=== PATIENT | female | born 1975 | race Caucasian/White ===

== ENCOUNTER → 2017-05-08 | Outpatient (CLI) | payer BC ==
[~2017-05-08] MED LIST: LANTUS SOLOS100 U/ML SC; LEVEMIR FLEXPEN SQ; MOTRIN 600600 MG/TAB PO; MOTRIN 800800 MG/TAB PO; PERCOCET 325 MG1 TA2 PO; PRENATAL1 TA1 PO
== END ==
LOC: MC.RAD 14:16
DX: Z12.31 Encounter for screening mammogram for malignant neoplasm of breast (principal); N63.21 Unspecified lump in the left breast, upper outer quadrant

== ENCOUNTER → 2017-05-11 | Outpatient (CLI) | payer BC | LOC: MC.RAD 09:00 | DX: N63.20 Unspecified lump in the left breast, unspecified quadrant (principal) ==

== ENCOUNTER → 2018-10-18 | Outpatient (CLI) | payer BC | LOC: MC.RAD 06:58 | DX: Z12.31 Encounter for screening mammogram for malignant neoplasm of breast (principal) ==

== ENCOUNTER 2018-11-13 18:14 | Emergency (ER) | payer BC ==
[~2018-11-13] VITALS: Ht 172.7 cm; Wt 93.2 kg
[2018-11-13] MEDS ORDERED: ESTRACE2 MG PO ×2 (18:29→18:30)
[2018-11-13] MEDS ORDERED: LEXAPRO20 MG PO (18:29)
[2018-11-13] MEDS ORDERED: ALDACTONE 100M100 MG PO (18:30)
[2018-11-13] MEDS ORDERED: GLUCOPHAGE XR500 M1 PO (18:30)
[2018-11-13 18:45] LABS: BASO # 0.1 (0.0-0.2); BASO % 0.3 % (0.0-2.0); GRAN % 86.6 % (42.2-75.2); HEMATOCRIT 42.7 % (37.0-47.0); HEMOGLOBIN 14.6 g/dl (12.5-16.0); LYMPH # 1.2 (1.2-3.4); LYMPH % 6.2 % (20.0-51.0); MEAN CELL VOLUME 88 fl (80.0-100.0); MEAN CORPUSCULAR HEMOGLOBIN 30 pg (27.0-31.0); MEAN CORPUSCULAR HGB CONC 34 g/dl (33.0-37.0); MEAN PLATELET VOLUME 8.8 fl (7.4-10.4); MONO # 1.1 (0.1-0.6); PLATELET COUNT 184 K/mm3 (130-400); RED BLOOD COUNT 4.86 M/mm3 (4.10-5.30); REDCELL DISTRIBUTION WIDTH-CV 12.1 % (11.5-14.5)
[2018-11-13 18:52] LABS: STREP SCREEN NEGATIVE
[2018-11-13 18:54] LABS: ALBUMIN 3.8 gm/dL (3.5-5.0); BILIRUBIN,TOTAL 0.5 mg/dL (0.0-1.0); CALCIUM 9.1 mg/dL (8.4-10.2); CREATININE, serum 0.69 (0.52-1.25); POTASSIUM 3.6 mmol/L (3.4-5.0); TOTAL PROTEIN 7.2 gm/dL (6.4-8.2)
[2018-11-13 19:39] VITALS: TEMP 98.4
[2018-11-13 20:17] VITALS: BP 114/65; PULSE 80
[2018-11-13] MEDS ORDERED: LEVAQUIN 5500 MG/TA1 PO (20:21)
[2018-11-13] MEDS ORDERED: ZOFRAN ODT4 MG PO (20:21)
[2018-11-14] VITALS (34 sets, daily range): O2SAT 89–100
[2018-11-15] VITALS (314 sets, daily range): O2SAT 79–100
== END 2018-11-13 20:35 | disposition home or self-care (01) ==
LOC: COL.ER 18:14
PROVIDERS: Nurse Practitioner
DX: J18.1 Lobar pneumonia, unspecified organism (principal); Z88.5 Allergy status to narcotic agent; Z88.0 Allergy status to penicillin; Z90.49 Acquired absence of other specified parts of digestive tract; Z90.710 Acquired absence of both cervix and uterus; Z79.84 Long term (current) use of oral hypoglycemic drugs
CPT/HCPCS: J1885; J2405; J7030

== ENCOUNTER 2018-11-14 18:26 | Inpatient (IN) | payer BC ==
[~2018-11-14] VITALS: Ht 172.7 cm; Wt 95.5 kg
[2018-11-14] VITALS (18 sets, daily range): BP systolic 121; BP diastolic 61; PULSE 96; TEMP 98.9; O2SAT 96–97
[~2018-11-14 18:26] MED LIST changes: +ALDACTONE 100M100 MG PO; +ESTRACE2 MG PO; +GLUCOPHAGE XR500 M1 PO; +LEVAQUIN 5500 MG/TA1 PO; +LEXAPRO20 MG PO; +ZOFRAN ODT4 MG PO
[2018-11-14 19:35] LABS: BASO % 0.3 % (0.0-2.0); GRAN # 9.7 (1.4-6.5); HEMATOCRIT 40.8 % (37.0-47.0); HEMOGLOBIN 14.1 g/dl (12.5-16.0); LYMPH # 0.7 (1.2-3.4); LYMPH % 6.5 % (20.0-51.0); MEAN CELL VOLUME 88 fl (80.0-100.0); MEAN CORPUSCULAR HEMOGLOBIN 31 pg (27.0-31.0); MEAN CORPUSCULAR HGB CONC 35 g/dl (33.0-37.0); MEAN PLATELET VOLUME 8.8 fl (7.4-10.4); MONO # 0.7 (0.1-0.6); PLATELET COUNT 173 K/mm3 (130-400); RED BLOOD COUNT 4.62 M/mm3 (4.10-5.30); REDCELL DISTRIBUTION WIDTH-CV 12.5 % (11.5-14.5)
[2018-11-14 19:55] LABS: ALBUMIN 3.7 gm/dL (3.5-5.0); BILIRUBIN,TOTAL 0.5 mg/dL (0.0-1.0); CALCIUM 8.8 mg/dL (8.4-10.2); CREATININE, serum 0.76 (0.52-1.25); POTASSIUM 3.6 mmol/L (3.4-5.0); TOTAL PROTEIN 7.2 gm/dL (6.4-8.2)
[2018-11-14 20:33] LABS: C-REACTIVE PROTEIN 42.8 mg/dL (0.0-0.9)
--- NOTE | 2018-11-14 22:40 | NUR ---
Patient arrived to ICU accompanied by Phoebe ED RN. Patient able to scoot over from bed to bed, no issues to report. Patient denied needing any person notified of arrival, belongings taken home by . Will assume care of patient at this time.
[2018-11-15] VITALS (7 sets, daily range): BP systolic 113–133; BP diastolic 32–82; PULSE 81–120; TEMP 98.4–103.1
--- NOTE | 2018-11-15 02:44 | NUR ---
PT BREATH SOUNDS ARE COURSE; HOWEVER THORUGHT TREATMENT PT COUGHS AND BREATH SOUNDS IMPROVE.
[2018-11-15 05:24] LABS: MEAN CELL VOLUME 91 fl (80.0-100.0); MEAN CORPUSCULAR HGB CONC 34 g/dl (33.0-37.0); MEAN PLATELET VOLUME 8.7 fl (7.4-10.4); PLATELET COUNT 148 K/mm3 (130-400); RED BLOOD COUNT 3.94 M/mm3 (4.10-5.30); REDCELL DISTRIBUTION WIDTH-CV 12.6 % (11.5-14.5)
[2018-11-15 05:32] LABS: ALBUMIN 2.7 gm/dL (3.5-5.0); BILIRUBIN,TOTAL 0.3 mg/dL (0.0-1.0); CALCIUM 7.1 mg/dL (8.4-10.2); CREATININE, serum 0.68 (0.52-1.25); POTASSIUM 3.8 mmol/L (3.4-5.0); TOTAL PROTEIN 5.6 gm/dL (6.4-8.2)
[2018-11-15 05:39] LABS: HEMATOCRIT 35.7 % (37.0-47.0); MEAN CORPUSCULAR HEMOGLOBIN 30 pg (27.0-31.0)
[2018-11-15 07:42] LABS: BAND 26 % (0-10); LYMPHOCYTE 22 % (20.0-51.0); METAMYELOCYTE 1 % (0-0); NEUTROPHILS 47 % (42.0-75.2); PLATELET ESTIMATE NORMAL (NORMAL)
--- NOTE | 2018-11-15 08:00 | NUR ---
Shift assessment complete at this time. Plan of care reviewed at bedside with patient. Additional time taken to address any other needs or concerns. Denies pain or any other discomfot. Vitals stable at this time. Bed in low position, call light within reach. Will continue to monitor.
--- NOTE | 2018-11-15 10:11 | NUR ---
Initial visit; Patient thanked Delinquent Tax Collector Assistant for stopping by and offering God's blessings.
--- NOTE | 2018-11-15 10:30 | NUR ---
SW attended clinical rounds to discuss discharge planning. Patient lives independently at home with her and works at the [employer]. Patient's PCP is Dr Shameka Landrum and she obtains prescriptions from [facility]. There is no reported DME or home health services. Patient will move up to the floor today. SW does not anticipate any discharge needs but will follow as needed.
--- NOTE | 2018-11-15 12:00 | NUR ---
Pt resting comfortably in bed. Denies pain or any other discomfort. Vitals stable at this time. Pt reports nausea is somewhat better now. Bed in low position, call light within reach. Will continue to monitor.
--- NOTE | 2018-11-15 13:45 | NUR ---
Pt transferred to Medical bed 315 by wheelchair. Pt tolerated transfer well with only complaints of minor nausea. Zofran administered prior to departure from ICU. Report called to ISABELLA Renee prior to patient transfer.
--- NOTE | 2018-11-15 14:49 | NUR ---
Pt alert and oriented. Pt nauseous upon arrival to floor and had small amount of emesis. Pt on oxygen via nasal cannula at 2L. Pt coughing without production. Pt rates pain 7/10 for headache. Pt given PRN Tylenol and Phenergan for pain and nausea management. Pt remains on fluids via LAC IV that is patent without redness or infiltration. Pt has call light in reach and SBA for ambulation at this time.
--- NOTE | 2018-11-15 19:06 | NUR ---
Pt stable and feeling much better after Phenergan, Tylenol, and shower. Pt resting in bed on room air with saturation 95%. Pt report given to Yun MASON. Pt has had 2 episodes of diarrhea this shift. Pt has call light in reach.
--- NOTE | 2018-11-15 19:07 | NUR ---
Pt did not want insulin because she has not been eating much only a couple bites of potatoes d/t nausea.
--- NOTE | 2018-11-15 19:37 | NUR ---
Pt report given to Yun MASON.
--- NOTE | 2018-11-15 20:30 | NUR ---
Initial shift assessment done- states feeling ok at this time- will put back on o2 at 2L/nc-pt hoping to sleep for a bit, has on/off nausea with coughing-will give the phenergan when needed- Up to bathroom with standby assist. RLL with crackles- IV fluids of NS at 150cc/hr
--- NOTE | 2018-11-15 23:00 | NUR ---
Temp 102.3- Tylenol given at this time- was given phenergan tonight for nausea
[2018-11-16] VITALS (7 sets, daily range): BP systolic 102–143; BP diastolic 51–65; PULSE 80–107; TEMP 98.7–103.2
--- NOTE | 2018-11-16 00:42 | NUR ---
tenp 100.4 at this time
--- NOTE | 2018-11-16 05:44 | NUR ---
Temp down to 98.7- has been resting quietly for the past couple hours- up to bathroom with assist-
[2018-11-16 08:08] LABS: HEMOGLOBIN 11.3 g/dl (12.5-16.0); MEAN CELL VOLUME 89 fl (80.0-100.0); MEAN CORPUSCULAR HEMOGLOBIN 30 pg (27.0-31.0); MEAN CORPUSCULAR HGB CONC 34 g/dl (33.0-37.0); MEAN PLATELET VOLUME 9.2 fl (7.4-10.4); PLATELET COUNT 168 K/mm3 (130-400); RED BLOOD COUNT 3.77 M/mm3 (4.10-5.30); REDCELL DISTRIBUTION WIDTH-CV 12.8 % (11.5-14.5)
[2018-11-16 08:18] LABS: HEMATOCRIT 33.7 % (37.0-47.0)
[2018-11-16 08:19] LABS: CALCIUM 7.4 mg/dL (8.4-10.2); CREATININE, serum 0.61 (0.52-1.25); MAGNESIUM 2.2 mg/dL (1.6-2.3); POTASSIUM 3.2 mmol/L (3.4-5.0)
[2018-11-16 12:08] LABS: BAND 16 % (0-10); LYMPHOCYTE 43 % (20.0-51.0); NEUTROPHILS 37 % (42.0-75.2); PLATELET ESTIMATE NORMAL (NORMAL)
--- NOTE | 2018-11-16 14:22 | NUR ---
Patient has had a good day, stating today is the best she has felt for a week. She has been having loose stools, did obtain specimen for c-diff testing, awaiting results. Patient does state that diarrhea is normal for her ever since she had her gallbladder removed. Frequently has dumping and will medicate occasionally for excessive dumping. Is not having any pain. Does seem drowsy but welcomes the rest.
--- NOTE | 2018-11-16 20:15 | NUR ---
Initial shift assessment done- temp 103.2, Tylenol given as ordered, Up to bathroom, voiding, states having some loose stool but that is her norm at times- testing was negative on day shift. Iv fluids at 75cc/hr, requesting a sandwich- able to eat some tonight.
--- NOTE | 2018-11-16 22:15 | NUR ---
Requesting nausea meds- states wants to make sure does not get out of control- Zofran given as ordered.
[2018-11-17 04:30] VITALS: BP 129/58; PULSE 93; TEMP 100.9
--- NOTE | 2018-11-17 05:00 | NUR ---
Temp 100.9 this morning- requesting Tylenol, did eat some last night- drinkin water without nausea
[2018-11-17 06:15] LABS: BASO % 0.3 % (0.0-2.0); EOS # 0.1 (0.0-0.7); EOS % 0.9 % (0-4.0); GRAN # 5.1 (1.4-6.5); GRAN % 68.5 % (42.2-75.2); HEMOGLOBIN 11.1 g/dl (12.5-16.0); LYMPH # 1.3 (1.2-3.4); LYMPH % 17.9 % (20.0-51.0); MEAN CELL VOLUME 89 fl (80.0-100.0); MEAN CORPUSCULAR HEMOGLOBIN 30 pg (27.0-31.0); MEAN CORPUSCULAR HGB CONC 34 g/dl (33.0-37.0); MONO # 0.9 (0.1-0.6); MONO % 11.5 % (1.7-9.3); PLATELET COUNT 173 K/mm3 (130-400); RED BLOOD COUNT 3.69 M/mm3 (4.10-5.30); REDCELL DISTRIBUTION WIDTH-CV 12.7 % (11.5-14.5)
[2018-11-17 06:30] LABS: CALCIUM 7.9 mg/dL (8.4-10.2); CREATININE, serum 0.59 (0.52-1.25); MAGNESIUM 2.1 mg/dL (1.6-2.3); POTASSIUM 3.4 mmol/L (3.4-5.0)
[2018-11-17 08:12] VITALS: BP 114/62; PULSE 80; TEMP 98.4
[2018-11-17 12:55] VITALS: BP 122/52; PULSE 95; TEMP 98.5
[2018-11-17 17:00] VITALS: BP 120/44; PULSE 86; TEMP 99
--- NOTE | 2018-11-17 17:28 | NUR ---
PT HAD UNEVENTFUL DAY. ABX ADMINISTERED ORDERED. PT HAD SOME GENERLIZED PAIN BUT STATED THAT IT WAS THE SAME EVERYDAY AND DENIED THE NEED FOR PAIN MEDS. PT HAS BEEN UP TO CHAIR AND BACK TO BED SEVERAL TIMES DURING THE DAY. THE MOST ELELVATION IN TEMP THIS SHIFT WAS AT 1700 OF 99.0, WNL EARLIER IN DAY. FLUIDS INT'D THIS SHIFT. PT REMAINS ON ROOM AIR WITH SATS OF 95%. HAS SOME NOTED COUGHING BUT NOT MUCH THIS SHIFT. BLOOD GLUCOSE WNL THIS SHIFT, NO NEED FOR SLIDING SCALE. SOME NOTED SOA WITH EXERTION BUT NOT WHILE RESTING. NO NOTED N/V THIS SHIFT.
--- NOTE | 2018-11-17 18:35 | NUR ---
PT SITTING UP TO EAT SUPPER, NO CONSERNS OR ISSUES VOICED AT THIS TIME.
[2018-11-17 20:17] VITALS: BP 137/67; PULSE 94; TEMP 99.3
--- NOTE | 2018-11-17 20:30 | NUR ---
Report recieved from Juliet MASON. Pt is resting with HOB elevated. c/o headache 08/11, but refuses any prn meds due to her stomach being "upset" and having "loose bowels". No acute distress noted. Repsirations even and unlabored. Lungs clear. Pt denies SOB. VSS. No O2 required. Abdomen soft, nontender. BS+. INT x2 to LAC and RH. L AC IV site is wrapped with [place]. Pt denies needs at this time.
--- NOTE | 2018-11-17 22:15 | NUR ---
Pt needs urine specimen. Pt has just returned from bathroom. Pt provided with specimen cup and wipes. Education provided for clean catch.
[2018-11-18 00:33] VITALS: BP 125/60; PULSE 82; TEMP 99.1
--- NOTE | 2018-11-18 00:36 | NUR ---
Joanna BOSE called d/t pt requesting sleeping medication. Orders received.
--- NOTE | 2018-11-18 03:20 | NUR ---
Pt sleeping but awakens when nurse enters room. Pt denies pain or needs. IV Abx administered. Will monitor for changes.
[2018-11-18 04:22] VITALS: BP 116/70; PULSE 90; TEMP 98.6
--- NOTE | 2018-11-18 05:45 | NUR ---
Pt sleeping this AM. Pt has slept perodically throughout the night without complaint. Pt independently ambulatory to bathroom and back without difficulty. Pt remained afebrile. VSS.
--- NOTE | 2018-11-18 07:15 | NUR ---
Received report from ISABELLA Owens. Pt on the phone as we entered the room. She had no complaints during report. Asked for fresh ice water which I got at this time. No other needs, will continue to monitor
[2018-11-18 07:31] LABS: HEMOGLOBIN 11.5 g/dl (12.5-16.0); MEAN CELL VOLUME 90 fl (80.0-100.0); MEAN CORPUSCULAR HEMOGLOBIN 30 pg (27.0-31.0); MEAN CORPUSCULAR HGB CONC 34 g/dl (33.0-37.0); PLATELET COUNT 200 K/mm3 (130-400); RED BLOOD COUNT 3.78 M/mm3 (4.10-5.30); REDCELL DISTRIBUTION WIDTH-CV 12.8 % (11.5-14.5)
[2018-11-18 07:40] LABS: HEMATOCRIT 34.1 % (37.0-47.0)
[2018-11-18 07:42] LABS: CALCIUM 8.4 mg/dL (8.4-10.2); CREATININE, serum 0.51 (0.52-1.25); POTASSIUM 3.6 mmol/L (3.4-5.0)
[2018-11-18 07:55] VITALS: BP 117/60; PULSE 74; TEMP 98
--- NOTE | 2018-11-18 09:15 | NUR ---
Gave report to ISABELLA Dinero. Pt resting in bed states she is tired. She did eat a small amount of breakfast stating nothing tastes good. Encouraged her to eat frequent small meals throughout the day. No other needs
[2018-11-18 09:17] LABS: BAND 5 % (0-10); EOSINOPHIL 2 % (0-4); LYMPHOCYTE 29 % (20.0-51.0); METAMYELOCYTE 1 % (0-0); NEUTROPHILS 54 % (42.0-75.2)
[2018-11-18 09:19] LABS: PLATELET ESTIMATE NORMAL (NORMAL)
--- NOTE | 2018-11-18 11:26 | NUR ---
Patient is resting in bed awake and alert. Respirations are even and nonlabored. Was observed ambulating in room independently with steady gait. Denies having pain. Does state she is tired and ready to go home. Does still have cough, states it is somewhat productive. States loose stools have improved. Call light and personal items are within reach.
[2018-11-18 11:40] VITALS: BP 130/79; PULSE 85; TEMP 98.4
[2018-11-18] MEDS ORDERED: LEVAQUIN 5500 MG/TA1 PO (12:28)
[2018-11-18] MEDS ORDERED: PROAIR HFA0.09 MG/AC IH (12:28)
--- NOTE | 2018-11-18 18:49 | NUR ---
Patient discharged home with at 1720. Assisted to front doors with via [facility] staff. met at doors. Personal belongings sent with patient. Discharge instructions given with understanding.
== END 2018-11-18 17:20 | disposition home or self-care (01) | DRG 871 ==
LOC: COL.ER 18:26 → MEDICAL 21:02 → ICU 21:02 → MEDICAL 11-15 14:43
PROVIDERS: Emergency Medicine; Hospitalist; Internal Medicine; Nurse Practitioner Family; ADMIT Family Medicine
DX: A41.9 Sepsis, unspecified organism (principal); J18.1 Lobar pneumonia, unspecified organism; E11.9 Type 2 diabetes mellitus without complications; Z79.84 Long term (current) use of oral hypoglycemic drugs; F41.9 Anxiety disorder, unspecified; R60.0 Localized edema; Z88.5 Allergy status to narcotic agent; Z88.0 Allergy status to penicillin; I10 Essential (primary) hypertension; E87.6 Hypokalemia; R19.7 Diarrhea, unspecified; F32.9 Major depressive disorder, single episode, unspecified
CPT/HCPCS: 99223-AI; 99232-AI; 99239; A4216; J0692; J1650; J1815; J1956; J2405; J2550; J3370; J7030; J7040; Q9967

== ENCOUNTER → 2019-10-28 | Outpatient (CLI) | payer BC ==
[~2019-10-28] MED LIST changes: +PROAIR HFA0.09 MG/AC IH
== END ==
LOC: MC.RAD 08:28
DX: Z12.31 Encounter for screening mammogram for malignant neoplasm of breast (principal)

== ENCOUNTER 2020-06-11 14:23 | Inpatient (IN) | payer BC ==
[2020-06-11] VITALS (9 sets, daily range): BP systolic 106–146; BP diastolic 6–74; PULSE 99–115; TEMP 97.9–100.5
[~2020-06-11] VITALS: Ht 162.6 cm; Wt 95.9 kg
[2020-06-11] MEDS ORDERED: RYBELSUS3 MG PO (16:29)
[2020-06-11] MEDS ORDERED: ESTRADERM0.1 MG/24 TD (16:31)
[2020-06-11] MEDS ORDERED: DITROPAN XL10 MG PO (16:33)
--- NOTE | 2020-06-11 17:03 | NUR ---
Patient to OR
[2020-06-12 03:54] VITALS: BP 106/55; PULSE 100; TEMP 97.9
--- NOTE | 2020-06-12 06:33 | NUR ---
PT MEDICATED X3 FOR INCISIONAL PAIN WITH THE LAST TIME AT 0541. AMBULATED IN THE KWAN X 1 DURING THE NIGHT. IV FLUIDS DC'D. TAKING FLUIDS WELL. BANDAIDS C/D/I.
[2020-06-12 07:03] VITALS: BP 107/51; PULSE 94; TEMP 98.6
[2020-06-12 12:01] VITALS: BP 120/68; PULSE 98; TEMP 98.9
--- NOTE | 2020-06-12 12:16 | NUR ---
Chaplain franz and offered support with patient.
--- NOTE | 2020-06-12 13:39 | NUR ---
ANIYAH (Areli) met with patient to conduct intake. Maryellen reported that she lives at home with her Hamilton (P# [phone]) and their children in [place], [place]. Maryellen reported that she requires no DME and requires no assistance with activities of daily living. Patient's PCP is Shameka Landrum, and she utilizes [facility] (workplace) during the week; however, she would utilize [facility] if discharged over the weekend. Patient does not have a DPOA, and she denies interest in filling out the paperwork at this time. Patient denies questions or concerns about future discharge. When asked how patient feels about future discharge, patient reported, "Fine." Patient plans to return home with upon discharge. ANIYAH will continue to follow.
[2020-06-12 15:51] VITALS: BP 127/59; PULSE 116; TEMP 100
--- NOTE | 2020-06-12 15:56 | NUR ---
Patient placed on 1L O2 d/t low O2 SATS. Dr. Mary in to see patient
--- NOTE | 2020-06-12 19:03 | NUR ---
Patient has done well throughout the day. Has been up independently in room. Encouraged patient to increase activity. Pain medications given throughout the day. Denies further needs at this time. Will report off to shift production supervisor.
[2020-06-12 19:44] VITALS: BP 124/59; PULSE 95; TEMP 98.9
--- NOTE | 2020-06-12 23:45 | NUR ---
REPORT FROM DAY SHIFT NURSE OBTAINED. PT RESTING IN BED WITH EYES OPEN. STATES SHE DOES NOT NEED ANYTHING AT THIS TIME. O2 ON AT 2L/NC. CALL LIGHT IN REACH.
[2020-06-12 23:59] VITALS: BP 122/63; PULSE 98; TEMP 98.9
[2020-06-13 05:51] VITALS: BP 119/67; PULSE 100; TEMP 100.5
[2020-06-13 06:06] LABS: BASO % 0.3 % (0.0-2.0); EOS # 0.1 (0.0-0.7); EOS % 0.7 % (0-4.0); GRAN # 12.1 (1.4-6.5); GRAN % 77.5 % (42.2-75.2); HEMATOCRIT 37.4 % (37.0-47.0); LYMPH % 12.7 % (20.0-51.0); MEAN CELL VOLUME 90 fl (80.0-100.0); MEAN CORPUSCULAR HEMOGLOBIN 31 pg (27.0-31.0); MEAN CORPUSCULAR HGB CONC 35 g/dl (33.0-37.0); MONO # 1.3 (0.1-0.6); MONO % 8.2 % (1.7-9.3); PLATELET COUNT 215 K/mm3 (130-400); RED BLOOD COUNT 4.18 M/mm3 (4.10-5.30); REDCELL DISTRIBUTION WIDTH-CV 12.9 % (11.5-14.5)
--- NOTE | 2020-06-13 07:33 | NUR ---
ENCOURAGED PT TO GET UP AND AMBULATE IN KWAN AND TO DRINK MORE WATER. TEMP UP THIS MORNING TO 100.5. FACE FLUSHED. SHE DID GET UP AND WALK TO BR AND THEN OUT IN THE KWAN. INDEPENDENT IN ROOM. USES 2L O2 SATS 90-93%. CALL LIGHT WITHIN REACH.
[2020-06-13 07:40] VITALS: BP 124/56; PULSE 89; TEMP 98.2
--- NOTE | 2020-06-13 08:08 | NUR ---
Patient up in room. rounded. Orders recieved. Patient did not have breakfast per his orders. Patient Npo for CT scan. Patient denies nausea. Her abdomen is distended, bowels quiet. She does report flatus. She is voiding. Pain 4/10. [place] did help. Patient Iv to Rac, IVF started as well as antibioitics & home medications. Patient vss this am, O2 off and afebrile at this time. Will adri.
--- NOTE | 2020-06-13 10:03 | NUR ---
Patient resting in bed. She has been up to the bathroom, pain increased after being up. One tab [place] for pain at this time. 4/10abdominal pain. Iced tea is all she request, deneis nausea. Will monitor.
[2020-06-13 11:27] VITALS: BP 110/49; PULSE 86; TEMP 98.7
--- NOTE | 2020-06-13 12:35 | NUR ---
Patient resting. Tolerated lunch. Will continue to monitor.
[2020-06-13 15:23] VITALS: BP 117/62; PULSE 91; TEMP 98.5
--- NOTE | 2020-06-13 16:49 | NUR ---
Patient resting in bed. 07/14. lowest she has rated her pain. [place] helped. She is tolerating PO intake. No nausea. Reports being able to get some sleep this afternoon, which she was thankful for.
--- NOTE | 2020-06-13 19:01 | NUR ---
Received report from ISABELLA Mota. Pt currently resting in bed and has no concerns at this time. She was given pain medication by Svetlana. She has her call light within reach.
--- NOTE | 2020-06-13 19:38 | NUR ---
Patient sitting up at edge of bed. sandwich tray provded, she did not like the dinner. Pain much better managed today with norco. IVf per orders. Voiding adequately. REport to Kaela to resume cares.
[2020-06-13 21:01] VITALS: BP 134/74; PULSE 102; TEMP 98.5
[2020-06-14] VITALS (7 sets, daily range): BP systolic 121–136; BP diastolic 56–82; PULSE 80–98; TEMP 97.7–98.5
--- NOTE | 2020-06-14 03:15 | NUR ---
Pt called and requested something for pain and pt was given pain medication at this time. Pt has her call light within reach.
--- NOTE | 2020-06-14 05:00 | NUR ---
Pt currently resting in bed. She has been independent in her room. She has ambulated from the bed to her restroom throughout the night. Pt has her call light within reach.
--- NOTE | 2020-06-14 05:55 | NUR ---
Pt resting in bed. Pt has her call light within reach.
[2020-06-14 07:58] LABS: BASO % 0.3 % (0.0-2.0); EOS # 0.2 (0.0-0.7); EOS % 1.2 % (0-4.0); GRAN % 76.9 % (42.2-75.2); HEMOGLOBIN 12.3 g/dl (12.5-16.0); LYMPH # 1.9 (1.2-3.4); LYMPH % 14.4 % (20.0-51.0); MEAN CELL VOLUME 89 fl (80.0-100.0); MEAN CORPUSCULAR HEMOGLOBIN 30 pg (27.0-31.0); MEAN CORPUSCULAR HGB CONC 34 g/dl (33.0-37.0); MEAN PLATELET VOLUME 8.7 fl (7.4-10.4); MONO # 0.9 (0.1-0.6); MONO % 6.8 % (1.7-9.3); PLATELET COUNT 262 K/mm3 (130-400); RED BLOOD COUNT 4.04 M/mm3 (4.10-5.30); REDCELL DISTRIBUTION WIDTH-CV 12.8 % (11.5-14.5)
--- NOTE | 2020-06-14 08:00 | NUR ---
PATIENT IS A&O. VSS. RATES ABD PAIN POST OP AT 410. ABD LAP SITES X4 ARE CD&I WITH BANDAIDS. ABD IS ROUND, SOFT AND WITH POSITIVE BOWL SOUNDS. NO C/O N/V. IV FLUIDS AND ABX INFUSING PER ORDERS INTO RIGHT AC IV VIA PUMP. AM MEDS GIVEN. HEAD TO TOE ASSESSMENT COMPLETE. NO OTHER NEEDS. CALL LIGHT IN REACH.
[2020-06-14 08:05] LABS: HEMATOCRIT 35.8 % (37.0-47.0)
--- NOTE | 2020-06-14 09:57 | NUR ---
Initial visit; Patient states she is a little better and thanked Knitter Mechanic for looking in on her and keeping her in Chaplains prayers.
--- NOTE | 2020-06-14 20:10 | NUR ---
PT AMBULATING IN HALLWAY. GAIT STEADY. BACK TO ROOM, IV FLAGYL HUNG. REMOVED BANDAIDS X3 FROM ABDOMEN, LAP SITES HEALING WELL. REPORTS PASSING GAS AND VOIDING WELL. SL TO RIGHT AC WITHOUT REDNESS OR SWELLING, FLUSHES WELL.
--- NOTE | 2020-06-14 22:30 | NUR ---
MEDICATED WITH NORCO 5/325MG 1 TAB PO FOR PAIN TO ABD 6/10.
[2020-06-15 04:23] VITALS: BP 117/65; PULSE 81; TEMP 98.8
[2020-06-15 07:52] LABS: BASO % 0.4 % (0.0-2.0); EOS # 0.2 (0.0-0.7); EOS % 1.7 % (0-4.0); GRAN # 7.7 (1.4-6.5); GRAN % 72.6 % (42.2-75.2); HEMOGLOBIN 11.8 g/dl (12.5-16.0); LYMPH # 1.8 (1.2-3.4); LYMPH % 16.5 % (20.0-51.0); MEAN CELL VOLUME 90 fl (80.0-100.0); MEAN CORPUSCULAR HEMOGLOBIN 31 pg (27.0-31.0); MEAN CORPUSCULAR HGB CONC 34 g/dl (33.0-37.0); MEAN PLATELET VOLUME 8.6 fl (7.4-10.4); MONO # 0.9 (0.1-0.6); MONO % 8.4 % (1.7-9.3); PLATELET COUNT 251 K/mm3 (130-400); RED BLOOD COUNT 3.82 M/mm3 (4.10-5.30); REDCELL DISTRIBUTION WIDTH-CV 12.8 % (11.5-14.5)
[2020-06-15 07:54] LABS: HEMATOCRIT 34.5 % (37.0-47.0)
--- NOTE | 2020-06-15 08:00 | NUR ---
PATIENT IS A&O. VSS. RATES PAIN IN ABD AT 4/10. NO NEED FOR PAIN MEDS AT THIS TIME. ABD LAP SITES ARE CD&I WITH BANDAID. ABD IS ROUND, SOFT AND WITH POSITIVE BOWL SOUNDS. NO C/O N/V. IV ABX INFUSING VIA PUMP INTO RIGHT AC IV. HEAD TO TOE ASSESSMENT COMPLETE. AM MEDS GIVEN. PATIENT HOPING TO DISCHARGE HOME LATER TODAY. INDEPENDENT IN ROOM. NO OTHER NEEDS.
[2020-06-15 08:49] VITALS: BP 124/78; PULSE 88; TEMP 98.2
[2020-06-15] MEDS ORDERED: LEVAQUIN 750MG750 M1 PO (10:49)
[2020-06-15] MEDS ORDERED: FLAGYL500 MG PO (10:49)
[2020-06-15] MEDS ORDERED: NORCO 325 MG-51 TAB PO (10:51)
[2020-06-15 11:36] VITALS: BP 127/63; PULSE 81; TEMP 98.1
--- NOTE | 2020-06-15 12:10 | NUR ---
PATIENT DISCHARGING HOME VIA WC TO PERSONAL VEHICLE WHERE IS WAITING. GAVE DISCHARGE INSTRUCTIONS, E-SCRIPTS SENT, AND DISCUSSED F/U APT. ANSWERED ALL QUESTIONS/CONCERNS. DC'D IV SITE, COVERED WITH GAUZE & COBAN. PATIENT IS DRESSED AND PACKED HER PERSONAL BELONGINGS. PATIENT DISCHARGED.
== END 2020-06-15 12:10 | disposition home or self-care (01) | DRG 343 ==
LOC: COL.RAD 14:23 → SURG 16:20
PROVIDERS: ADMIT Surgery
PROC: 0DTJ4ZZ Resection of Appendix, Percutaneous Endoscopic Approach (ICD-10-PCS; principal; 2020-06-11 17:30)
DX: K35.891 Other acute appendicitis without perforation, with gangrene (principal); Z88.0 Allergy status to penicillin; Z88.6 Allergy status to analgesic agent
CPT/HCPCS: OP; G0378; J0690; J0696; J1885; J2405; J2704; J3010; J7030; J7120; Q9967

== ENCOUNTER → 2020-11-02 | Outpatient (CLI) | payer BC ==
[~2020-11-02] MED LIST changes: +DITROPAN XL10 MG PO; +ESTRADERM0.1 MG/24 TD; +FLAGYL500 MG PO; +LEVAQUIN 750MG750 M1 PO; +NORCO 325 MG-51 TAB PO; +RYBELSUS3 MG PO
== END ==
LOC: MC.RAD 07:21
DX: Z12.31 Encounter for screening mammogram for malignant neoplasm of breast (principal)

== ENCOUNTER → 2022-02-20 | Outpatient (CLI) | payer BC | LOC: MC.RAD 07:13 | DX: Z12.31 Encounter for screening mammogram for malignant neoplasm of breast (principal) ==

== ENCOUNTER → 2023-04-06 | Outpatient (CLI) | payer BC | LOC: MC.RAD 07:38 | DX: Z12.31 Encounter for screening mammogram for malignant neoplasm of breast (principal); N64.89 Other specified disorders of breast ==